=== PATIENT | female | born 1950 | race Caucasian/White ===

== ENCOUNTER 2021-03-20 10:23 | Day surgery (SDC) | payer MEDICARE, SELFPAY ==
--- NOTE | 2021-03-19 19:15 | PM.PREOP ---
Pre-operative Note COVID-19 COVID-19 status: Negative Interval Note History & Physical reviewed/Exam performed by Physician: Yes Changes to H&P: No
--- NOTE | 2021-03-19 19:16 | P.OP_ITS ---
Operative Date/Time/Diagnoses Date of procedure: 03/20/21 Time of procedure: 11:45 Procedure & Clinicians Procedure: Preoperative diagnoses: 1. Complex Right significant Nuclear sclerotic and cataract. Possible need for capsular dye. 2. Astigmatism which is to be corrected with a toric intraocular lens implant. 3. High myopia Postoperative diagnoses: 1. Complex Cataract removal with phacoemulsification with toric posterior chamber intraocular lens implant placed. Capsular dye used. Procedure: Phacoemulsification with posterior chamber toric intraocular lens implant. Surgeon: Daksha Pena MD Complications: None Specimen: None Implant: [id number] axis [id number] Blood loss: None Anesthesia: Retrobulbar with monitored standby Description of procedure: Patient presents with a complaint of decreased vision due to cataract which is affecting activities of daily living especially at distance. She has a very high myope. The patient wants surgery to improve vision and astigmatism. She understands the extra risk of surgery during the COVID-19 epidemic and wishes to proceed. She has tested negative for active iris within 72 hours of procedure. The patient was taken to the operating room and proparacaine drops placed. Indelible ink carroll were placed at the 90 and 180 degree meridian. The patient was placed on the operating room table and given IV sedation. A retrobulbar block insert consisting of 6 cc of 2% xylocaine without epinephrine mixed half and half with 0.5% Marcaine with 1 cc of hyaluronidase added is placed between the medial and lateral 1/3 of the inferior orbital rim. The eye is manually massaged for 30 sec, prepped using Betadine solution, and draped in the usual sterile fashion. Temporal approach was made, a 1 mm side-port incision was made 90? from the proposed corneal wound. Phenylephrine 1.5% mixed with 1% xylocaine 0.2 cc was placed into the anterior chamber. Due to poor red reflex and cortical spoking an air bubble was placed followed by capsular dye. The extra dye and bubble was then removed using BSS. Endocoat followed by Healon was then placed. A 2.6 mm clear incision with a 2.6 mm blade was placed at the 170 degree meridian. A 360 degree capsulorrhexis style capsulotomy was then performed with a cystitome needle on a Healon greatly aided by capsular dye. Due to deep orbit with high cheek bone extra viscoelastic was also needed. Hydrodelineation and hydrodissection were performed. The phacoemulsification unit is introduced, and sculpting used to groove the central lens. It is then removed in chopping mode. Epi nucleus is removed with epinuclear mode and irrigation aspiration was used to remove the peripheral cortex. The posterior capsule is polished. The intraocular lens is selected, inspected, power confirmed, and placed in the posterior chamber at the desired meridian of 48?. The pupil was not constricted. The wound was stromally hydrated and tested for leaks, there was none and it was left sutureless. Vigamox 0.1 cc was placed into the anterior chamber. Kenalog 0.2 cc was placed in the superior subconjunctival space. A drop of antibiotic and was placed and the eye was patched and shielded. The patient was stable and returned to the recovery room in excellent condition. Dictated by: Daksha Pena MD Copy to: [facility] Same procedure as scheduled: Yes
[2021-03-20 10:40] VITALS: BP 139/69; PULSE 58; RESP 16; TEMP 36.1; O2SAT 100; BMI 25.3
[2021-03-20] MEDS: PROPARACAINE 0.5% OPHTH SOL 2 DROPS EYE-OP (10:41)
[2021-03-20] MEDS: CATARACT EYE COMPOUND (10 DROPS/SYRINGE) 3 DROPS EYE-OP (10:53)
[2021-03-20] MEDS: TRYPAN BLUE 0.5 ML SYRINGE INJ (12:04)
[2021-03-20] MEDS: HYALURONATE SODIUM 30 MG-10 MG/ML SYRINGES 1 BOX INTRAOCULA (12:05)
[2021-03-20] MEDS: MOXIFLOXACIN INJ 4 MG/0.8 ML VIAL 0.5 MG EYE-OP (12:05)
[2021-03-20] MEDS: PHENYLEPHRINE/LIDOCAINE VIAL (OR) 0.2 ML EYE-OP (12:05)
[2021-03-20] MEDS: TRIAMCINOLONE 50 MG/5 ML VIAL INJ (12:05)
[2021-03-20] MEDS: BALANCED SALT IRRIG SOLN NO.2 500 ML, EPINEPHrine 1 MG IRR (12:06)
[2021-03-20] MEDS: LIDOCAINE 2% 4 ML, BUPIVACAINE 0.5% (PF) 4 ML, HYALURONIDASE 150 UNIT INJ (12:06)
[2021-03-20] MEDS: ERYTHROMYCIN OPHTH 1 GM OINT 1 APPLIC EYE-RIGHT (12:06)
[2021-03-20 12:40] VITALS: BP 141/65; PULSE 59; RESP 16; TEMP 36.1; O2SAT 100
== END 2021-03-20 13:00 | disposition home or self-care (01) ==
PROVIDERS: PCP Family Medicine; Referring Provider Ophthalmology; Visit Provider Ophthalmology
DX: H25.811 Combined forms of age-related cataract, right eye (principal); H52.201 Unspecified astigmatism, right eye
CPT/HCPCS: 66984; J0171; J2704; J3301; J3470; V2787

== ENCOUNTER 2021-05-08 12:27 | Day surgery (SDC) | payer MEDICARE, SELFPAY ==
--- NOTE | 2021-05-07 19:36 | PM.PREOP ---
Pre-operative Note COVID-19 COVID-19 status: Negative Interval Note History & Physical reviewed/Exam performed by Physician: Yes Changes to H&P: No
--- NOTE | 2021-05-07 19:37 | P.OP_ITS ---
Operative Date/Time/Diagnoses Date of procedure: 05/08/21 Time of procedure: 13:15 Procedure & Clinicians Procedure: Preoperative diagnoses: 1. Complex Left significantNuclear sclerotic cataract with poor red reflex and need for capsular dye. 2. Astigmatism which is to be corrected with a toric intraocular lens implant. 3. High myopia with desire for reading vision in this eye. Postoperative diagnoses: 1. Complex Cataract removal with phacoemulsification with toric posterior chamber intraocular lens implant placed. Capsular dye used Procedure: Phacoemulsification with posterior chamber toric intraocular lens implant. Surgeon: Daksha Pena MD Complications: None Specimen: None Implant: [id number] [place] 120 Blood loss: None Anesthesia: Retrobulbar with monitored standby Description of procedure: Patient presents with a complaint of decreased vision due to cataract which is affecting activities of daily living. The patient wants surgery to improve vision and astigmatism. The patient was taken to the operating room and proparacaine drops placed. Indelible ink carroll were placed at the 90 and 180 degree meridian. The patient was placed on the operating room table and given IV sedation. A retrobulbar block insert consisting of 6 cc of 2% xylocaine without epinephrine mixed half and half with 0.5% Marcaine with 1 cc of hyaluronidase added is placed between the medial and lateral 1/3 of the inferior orbital rim. The eye is manually massaged for 30 sec, prepped using Betadine solution, and draped in the usual sterile fashion. Temporal approach was made, a 1 mm side-port incision was made 90? from the proposed corneal wound. Phenylephrine 1.5% mixed with 1% xylocaine 0.2 cc was placed into the anterior chamber. A poor red reflex was present and patient is a high myope with a difficult operating angle. To improve visability an air bubble was placed followed by capsular dye. Endocoat followed by Healon was then placed. A 2.6 mm clear incision with a 2.6 mm blade was placed at the 170 degree meridian. A 360 degree capsulorrhexis style capsulotomy was then performed with a cystitome needle on a Healon greatly aided by the capsular dye. Hydrodelineation and hydrodissection were performed. The phacoemulsification un it is introduced, and sculpting used to groove the central lens. It is then removed in chopping mode. Epi nucleus is removed with epinuclear mode and irrigation aspiration was used to remove the peripheral cortex. The posterior capsule is polished. The intraocular lens is selected, inspected, power confirmed, and placed in the posterior chamber at the desired meridian of 120 degrees. Multiple rotations of the haptics were done to align it at the marked axis.. The pupil was not constricted. The wound was stromally hydrated and tested for leaks, there was none and it was left sutureless. Vigamox 0.1 cc was placed into the anterior chamber. Kenalog 0.2 cc was placed in the superior subconjunctival space. A drop of antibiotic and was placed and the eye was patched and shielded. The patient was stable and returned to the recovery room in excellent condition. Dictated by: Daksha Pena MD Copy to: [facility] Same procedure as scheduled: Yes
[2021-05-08] MEDS: CATARACT EYE COMPOUND (10 DROPS/SYRINGE) 3 DROPS EYE-OP (12:42)
[2021-05-08] MEDS: PROPARACAINE 0.5% OPHTH SOL 2 DROPS EYE-OP ×2 (12:42→13:43)
[2021-05-08 12:44] VITALS: BP 152/64; PULSE 74; RESP 14; TEMP 36.2; O2SAT 98; BMI 25.1
[2021-05-08] MEDS: LIDOCAINE 2% 4 ML, BUPIVACAINE 0.5% (PF) 4 ML, HYALURONIDASE 150 UNIT INJ (13:55)
[2021-05-08] MEDS: ERYTHROMYCIN OPHTH 1 GM OINT 1 APPLIC EYE-LEFT (14:05)
[2021-05-08] MEDS: HYALURONATE SODIUM 30 MG-10 MG/ML SYRINGES 1 BOX INTRAOCULA (14:07)
[2021-05-08] MEDS: MOXIFLOXACIN INJ 4 MG/0.8 ML VIAL 0.5 MG EYE-OP (14:10)
[2021-05-08] MEDS: PHENYLEPHRINE/LIDOCAINE VIAL (OR) 0.2 ML EYE-OP (14:10)
[2021-05-08] MEDS: TRIAMCINOLONE 50 MG/5 ML VIAL INJ (14:11)
[2021-05-08] MEDS: TRYPAN BLUE 0.5 ML SYRINGE INJ (14:12)
[2021-05-08] MEDS: BALANCED SALT IRRIG SOLN NO.2 500 ML, EPINEPHrine 1 MG IRR (14:12)
[2021-05-08 14:45] VITALS: BP 154/68; PULSE 63; RESP 14; TEMP 36.1; O2SAT 100
== END 2021-05-08 15:02 | disposition home or self-care (01) ==
LOC: OR 12:27
PROVIDERS: PCP Family Medicine; Referring Provider Ophthalmology; Visit Provider Ophthalmology
PROC: (CPT 66984; principal; 2021-05-08 13:15)
DX: H25.12 Age-related nuclear cataract, left eye (principal); H52.202 Unspecified astigmatism, left eye; H52.10 Myopia, unspecified eye
CPT/HCPCS: 66984; J0171; J2704; J3301; J3470; V2787